=== PATIENT | female | born 1985 | race Caucasian/White ===

== ENCOUNTER 2024-07-30 09:33 | Emergency (ER) | payer BC, SELFPAY ==
[2024-07-30 09:47] VITALS: BP 116/71
--- NOTE | 2024-07-30 10:37 | ED.GENMED ---
History of Present Illness
General
Chief Complaint: Skin Surface Trauma
Source: patient
Exam Limitations: none
Time Seen by Provider: 07/30/24 10:36
Nursing documentation reviewed up to this point in time: agreed with
History of Present Illness
History of Present Illness:
This is a 38 y/o female with no pertinent past medical history presents emerged from today with concerns of a laceration to the plantar surface of her left foot. Patient reports that she was walking barefoot in the laundry room around an hour ago
when she cut her foot on a broken piece of tile. Patient states that she did not fall and is able to ambulate without difficulty. She is currently in her third trimester . She had a Tdap vaccine 3 weeks ago. She denies any ankle pain foot
pain, proximal extremity pain. She cleaned the wound out with water immediately after the injury. Patient denies any loss of sensation, paresthesias.
Review of Systems
Review of Systems
All Other Systems: ROS reviewed and negative except as documented in HPI and ROS
Phy Exam
Physical Exam
Physical Exam:
General: Patient is well appearing and in no acute distress; non-toxic
Skin: Warm and dry, there is a 2.5 cm linear laceration on the lateral plantar aspect of the left foot. Brisk capillary refill.
Head: Normocephalic, atraumatic
Eyes: Sclera non-icteric. EOMs intact.
Cardiac: Regular rate
Pulm: Normal respiratory effort
Musculoskeletal: Full range of motion of the digits of the foot.
Neuro: CN II-XII intact, no focal neurologic deficits. Sensation intact to light touch, good 2 point discrimination.
Psychiatric: Appropriate mood and affect.
Course
Orders/Labs/Results
Orders:
Orders
07/30/24 11:09
Acetaminophen [Tylenol] 325 mg PO NOW STA
Vital Signs
Initial and Last Documented VS:
Initial Vital Signs
Temp Pulse Resp BP Pulse Ox
98 F 91 16 116/71 98
07/30/24 09:47 07/30/24 09:47 07/30/24 09:47 07/30/24 09:47 07/30/24 09:47
Last Documented Vital Signs
Temp Pulse Resp BP Pulse Ox
98 F 88 16 119/76 99
07/30/24 09:47 07/30/24 11:50 07/30/24 11:50 07/30/24 11:50 07/30/24 11:50
Procedures
Laceration Closure
Left Plantar Foot:
Status of Wound: clean
Size of Wound in cm: 2.5
Description of Wound Edges: sharp
Preparation: cleaned with saline
Anesthesia: 1% Lidocaine with epi
Revision/Debridement: routine- no revision
Wound exploration: explored to base- no FB
Type of Closure: single layer closure
Skin Closure Material: 4-0 prolene
Number of sutures: 4
MDM/Problems Addressed
Differential Diagnosis Includes:
ddx include abrasion, laceration, foreign body
MDM/Problems Addressed:
This is a 38 y/o female with no pertinent past medical history presents emerged from today with concerns of a laceration to the plantar surface of her left foot. Patient reports that she was walking barefoot in the laundry room around an hour ago
when she cut her foot on a broken piece of tile. On physical exam, she has a 2.5 cm vertical laceration. Sensation is intact, she has full range of motion of digits of the foot. Wound was repaired with sutures. Patient's tetanus is updated, she
did have a vaccine 3 weeks ago. She tolerated the procedure well. Wound care discussed, patient stable for discharge. Patient no bony tenderness, no indication for x-ray at this time.
Chronic conditions affecting care:
n/a
Acute Exacerbation and/or Progression of Chronic Illness:
n/a
*Pulse Oximetry
Patient hypoxic: no
*Critical Care Note
Total Time (30-74mins, 75-104mins- exclusive of procedures): Not Applicable
Data Reviewed
Review of Other/Old Records Reveals: Records (No previous ER physician documentation to review) and Discharge Summary (No discharge summaries for [facility] in [facility])
Source: patient and records
Prescriptions/Medications Considered But Not Given:
Considered antibiotic however the injury just happened and the wound was thoroughly irrigated with saline
Patient Management
Escalation/DeEscalation of care consider admission/obs:
admit not indicated
ED Attending Note
-
Portions of this chart may have been created with voice recognition software.� Occasional wrong word or��sound alike� substitutions may have occurred due to the inherent limitations of voice recognition software.
Discharge Plan
Departure
Patient Disposition: Home (Routine Discharge)
Date of Disposition: 07/30/24
Time of Disposition: 11:49
Patient with high blood pressure during this ER visit?: Yes
Condition: Good
Discharge Problem:
Laceration of foot
Instructions: Wound Care (DC), Laceration Repair With Stitches (DC), BLOOD PRESSURE
Referrals:
Brandi Hitchcock MD [Family Provider] -
Activity Restrictions/Additional Instructions:
5 stitches were placed. You can report to your primary care provider, urgent care, or the emergency department to have your stitches removed in 10 to 12 days.
Please return emergency department should you develop signs of infection such as purulent drainage from the wound, surrounding redness, fevers or chills, or any other signs or symptoms concerning to you.
Keep the wound dry for 24 hours, after this time, you can let mild soapy water run over the wound, please do not scrub the wound. You can keep your foot elevated to help with swelling. You can change dressing once daily.
Interventions
Interventions:
*Risk Screen - Suicide Last Done: 07/30/24 09:47
*General Assessment Last Done: 07/30/24 09:47
*Neglect/Abuse Screening Last Done: 07/30/24 09:47
ED- Fall Risk Assessment Last Done: 07/30/24 11:55
*ED COVID-19 Vaccine History Last Done: 07/30/24 10:42
*Nursing Disposition Last Done: 07/30/24 11:55
ED-Skin Assessment Last Done: 07/30/24 10:42
Discharge Date and Time
Discharge Date/Time: 07/30/24 11:55
Print Language: DOMINICAN
[2024-07-30] MEDS: TYLENOL 325 MG PO (11:15)
[2024-07-30 11:50] VITALS: BP 119/76
== END 2024-07-30 11:55 | disposition home or self-care (01) ==
LOC: EMR 09:33
PROVIDERS: EMERGENCY PHYSICIAN Emergency Medicine; FAMILY PHYSICIAN Family Medicine
DX: S91.312A Laceration without foreign body, left foot, initial encounter (principal); W45.8XXA Other foreign body or object entering through skin, initial encounter; Y93.01 Activity, walking, marching and hiking
CPT/HCPCS: 99282; 12001

== ENCOUNTER 2024-09-29 20:22 | Inpatient (IN) | payer BC, SELFPAY ==
[2024-09-29 20:31] VITALS: BP 119/79; BMI 30.3
[2024-09-29] MEDS: LR 1000 IV ×2 (21:15→23:00)
[2024-09-29 21:25] LABS: % Basophils 0.5 % (0-2); % Eosinophils 0.7 % (0-6); % Immature Granulocytes 0.6 % (0-0.5); % Lymphocytes 21.2 % (20.5-51.1); % Monocytes 6.9 % (1.7-9.3); % Neutrophils 70.1 % (42.2-75.2); Absolute Basophils 0.1 10^3/uL (0-0.2); Absolute Eosinophils 0.1 10^3/uL (0-0.7); Absolute Immature Granulocytes 0.1 10^3/uL (0-0.05); Absolute Lymphocytes 2.1 10^3/uL (1.2-3.4); Absolute Monocytes 0.7 10^3/uL (0.1-0.6); Hematocrit 34.2 % (37.0-47.0); Hemoglobin 11.5 g/dL (12.0-16.0); Mean Corp Hgb Conc. 33.6 g/dL (33.0-37.0); Mean Corpuscular Hgb 27.6 pg (27.0-31.0); Mean Platelet Volume 10.4 fL (7.4-10.4); Nucleated Red Blood Cells % 0 %; Platelet Count 247 10^3/uL (130-400); Red Blood Cell Count 4.17 10^6/uL (4.20-5.40); Red Cell Dist. Width 13.5 % (11.5-14.5)
[2024-09-29] MEDS: SUBLIMAZE 100 MCG EPIDURAL (22:46)
[2024-09-29] MEDS: FENTANYL/BUPIVACAINE 100 EPIDURAL (22:47)
[2024-09-30] MEDS: MOTRIN 600 MG PO ×4 (04:42→23:33)
[2024-09-30] MEDS: TYLENOL 650 MG PO ×4 (06:01→23:33)
[2024-09-30] MEDS: SENOKOT-S 1 TABLET PO (11:15)
[2024-09-30] MEDS: PRENATAL PLUS 1 TABLET PO (11:15)
[2024-10-01 05:32] LABS: Hematocrit 30.6 % (37.0-47.0); Hemoglobin 9.8 g/dL (12.0-16.0)
[2024-10-01] MEDS: MOTRIN 600 MG PO (07:29)
[2024-10-01] MEDS: TYLENOL 650 MG PO (07:29)
[2024-10-01] MEDS: PRENATAL PLUS PO (11:08)
[2024-10-01] MEDS: FEOSOL 325 MG PO (11:26)
[2024-10-01] MEDS: SENOKOT-S 1 TABLET PO (11:26)
[2024-10-02 18:05] LABS: Syphilis/T. pallidum Ab Reflex Negative (Negative)
== END 2024-10-01 12:39 | disposition home or self-care (01) | DRG 807 ==
LOC: LDRP 20:22
PROVIDERS: Obstetrics & Gynecology; ADMITTING PHYSICIAN Obstetrics & Gynecology; ATTENDING PHYSICIAN Obstetrics & Gynecology; FAMILY PHYSICIAN Family Medicine
PROC: 0HQ9XZZ Repair Perineum Skin, External Approach (ICD-10-PCS; 2024-09-30)
PROC: 10907ZC Drainage of Amniotic Fluid, Therapeutic from Products of Conception, Via Natural or Artificial Opening (ICD-10-PCS; 2024-09-30)
PROC: 10E0XZZ Delivery of Products of Conception, External Approach (ICD-10-PCS; 2024-09-30)
DX: O70.0 First degree perineal laceration during delivery (principal); Z37.0 Single live birth; Z3A.40 40 weeks gestation of pregnancy
CPT/HCPCS: 36415; 85014; 85018; 85025; 86780; 86850; 86900; 86901